=== PATIENT | male | born 1975 | race Caucasian/White ===

== ENCOUNTER 2019-12-20 23:05 | Inpatient (IN) | payer SELFPAY ==
[~2019-12-20] VITALS: Ht 177.8 cm; Wt 105.0 kg
[~2019-12-20 23:05] MED LIST: IV NORMAL SALINE 1,000ML 1,000 ML IV ONE
[2019-12-20] MEDS ORDERED: ONDANSETRON PF 4 MG/2 ML VIAL. IVP ONE (23:30)
--- NOTE | 2019-12-20 23:35 | PHYS DOC ---
Past History Past Medical History: Asthma Past Medical History thyroid Past Surgical History thyroid Smoking: Non-smoker Alcohol Use: None Drug Use: Marijuana General Adult EDM: Chief Complaint: short of air, nausea, vomiting, diarrhea HPI: HPI: Patient is a 44 year old male who presents for evaluation of shortness of air that has been off and on since a week ago . Patient arrived via EMS. earlier this evening he started having recurrent episodes of vomiting and diarrhea. Patient started having shaking chills as well. EMS was called to the house and his initial blood pressure was 80/palp but significantly improved shortly after arrival to 140 systolic. Patient was in moderate distress. States he was also having some vision changes. Risk factors for COVID included shortness of air as well as exposure to his spouse who works at [employer] [facility] [employer]. Many employees and prisoners are sick at that facility. [] Review of Systems: Review of Systems: Constitutional: Denies fever has chills Eyes: Has change in visual acuity HENT: Denies nasal congestion or sore throat Respiratory: Denies cough but has shortness of breath Cardiovascular: Denies chest pain or edema GI: diffuse abdominal cramping, has nausea, vomiting, no bloody stools but does have diarrhea : Denies dysuria Musculoskeletal: DIffuse body aches Integument: Denies rash Neurologic: Denies headache, focal weakness or sensory changes Endocrine: Denies polyuria or polydipsia Lymphatic: Denies swollen glands Psychiatric: Denies depression or anxiety Heart Score: Risk Factors: Risk Factors: DM, Current or recent (<one month) smoker, HTN, HLP, family history of CAD, obesity. Risk Scores: Score 0 - 3: 2.5% MACE over next 6 weeks - Discharge Home Score 4 - 6: 20.3% MACE over next 6 weeks - Admit for Clinical Observation Score 7 - 10: 72.7% MACE over next 6 weeks - Early Invasive Strategies Current Medications: Current Meds: Current Medications Medications (Trade) Dose Ordered Sig/Wilfrido Start Time Stop Time Status Last Admin Dose Admin Ondansetron HCl (Zofran) 4 mg 1X ONCE 12/20/19 23:30 12/20/19 23:31 Sodium Chloride 1,000 ml @ 1,000 mls/hr 1X ONCE 12/20/19 23:00 12/20/19 23:59 Allergies: Allergies: Allergies Coded Allergies Type Severity Reaction Last Updated Verified Unable to Assess 12/20/19 No Physical Exam: PE: Constitutional: Well developed, well nourished, moderate distress, somewhat toxic appearance. [] HENT: Normocephalic, atraumatic, bilateral external ears normal, oropharynx moist, no oral exudates, nose normal. [] Eyes: PERRL, EOMI, conjunctiva normal, no discharge. [] Neck: Normal range of motion, no tenderness, supple, no stridor. [] Cardiovascular:Heart rate regular rhythm, no murmur [] Lungs & Thorax: Bilateral breath sounds slightly diminished, wheezing present [] Abdomen: Diffuse mild tenderness, no masses, soft. [] Skin: Warm, dry, no erythema, no rash. [] Back: No tenderness, no CVA tenderness. [] Extremities: No tenderness, no cyanosis, no clubbing, ROM intact, no edema. [] Neurologic: Alert and oriented X 3, normal motor function, normal sensory function, no focal deficits noted. [] Psychologic: anxious affect, judgement normal. [] Current Patient Data: Vital Signs: Leukocytosis present, remainder of CBC and chemistries unremarkable. Troponin negative and lactic acid 1.6 EKG: EKG: EKG read at 2359. Normal sinus rhythm, rate 75, normal axis, flattened T waves lead III otherwise essentially normal EKG, not STEMI [] Radiology/Procedures: Radiology/Procedures: [] Course & Med Decision Making: Course & Med Decision Making Pertinent Labs and Imaging studies reviewed. (See chart for details) 5 patient now reports he is having some right-sided chest discomfort. EKG added as well as troponin 0128 Dr. Perera is the accepting physician. Patient was admitted to the [facility] rule out unit. In the meantime he received IV fluid replacement. Supportive care recommended. Patient agreed to the admission. CT scan abdomen pelvis failed to show evidence of pneumonia or obvious reason for the diarrhea. Patient still has occasional shaking chills. [] Dragon Disclaimer: Dragon Disclaimer: This electronic medical record was generated, in whole or in part, using a voice recognition dictation system. Departure Departure: Impression: Primary Impression: Dyspnea Qualified Codes: R06.03 - Acute respiratory distress Additional Impressions: Diarrhea Qualified Codes: R19.7 - Diarrhea, unspecified Chest pain Qualified Codes: R07.89 - Other chest pain Hypotension Qualified Codes: I95.9 - Hypotension, unspecified Disposition: 09 ADMITTED INPATIENT Admitting Physician: Kalin Perera Condition: STABLE COVID-19 Patient Risks: Age 65 or older: No Sign of co-morbidity: Yes (asthma) Exp to person + for COVID: Yes Exp to PUI: No Lower respiratory symptoms: Yes Fever: No Other: Yes (Spouse works at [employer] with a known significant outbreak) PPE Use: Full PPE with N95 mask or PAPR: Yes (N 95 mask, face shield, gown, gloves, repeated handwashing) YAZMIN GAGNON DO Dec 20, 2019 23:35
[2019-12-20 23:58] LABS: CALCIUM 9.1 mg/dL (8.5-10.1); CREATININE 1.4 mg/dL (0.7-1.3); GFR 55.1; POTASSIUM 4.1 mmol/L (3.5-5.1)
[2019-12-21] LABS: BASO # 0.2 x10^3/uL (0.0-0.2); BASO % 1 % (0-3); EOS # 0.3 x10^3/uL (0.0-0.7); EOS % 2 % (0-3); HEMATOCRIT 47.3 % (39.0-53.0); HEMOGLOBIN 15.6 g/dL (13.0-17.5); LYMPH # 1.1 x10^3/uL (1.0-4.8); LYMPH % 7 % (24-48); MEAN CORPUSCULAR HEMOGLOBIN 28 pg (25-35); MEAN CORPUSCULAR HGB CONC 33 g/dL (31-37); MEAN CORPUSCULAR VOLUME 86 fL (79-100); MONO # 0.9 x10^3/uL (0.0-1.1); MONO % 5 % (0-9); NEUT # 13.5 x10^3uL (1.8-7.7); NEUT % 84 % (31-73); PLATELET COUNT 308 x10^3/uL (140-400); RED BLOOD COUNT 5.51 x10^6/uL (4.30-5.70)
[2019-12-21 00:04] LABS: ALBUMIN 3.9 g/dL (3.4-5.0); ALBUMIN/GLOBULIN RATIO 1.1 (1.0-1.7); TOTAL BILIRUBIN 0.4 mg/dL (0.2-1.0); TOTAL PROTEIN 7.3 g/dL (6.4-8.2)
[2019-12-21] MEDS ORDERED: IV NORMAL SALINE 1,000ML 1,000 ML IV ONE (00:15)
[2019-12-21 00:52] LABS: % BANDS 12 % (0-9); % EOS 4 % (0-5); % LYMPHS 14 % (24-48); % MONOS 5 % (0-10); % SEGS 65 % (35-66); PLT ESTIMATE ADEQUATE (ADEQUATE)
[2019-12-21 00:54] LABS: BACTERIA,URINE 0 /HPF (0-FEW); BILIRUBIN,URINE NEG (NEG); CLARITY,URINE CLEAR; COLOR,URINE YELLOW; GLUCOSE,URINE NEG (NEG); NITRITE,URINE NEG (NEG); RBC,URINE 0 /HPF (0-2); SQUAMOUS EPITHELIAL CELL,UR OCC /LPF; UROBILINOGEN,URINE 0.2 mg/dL (0.2 mg/dL); WBC,URINE RARE /HPF (0-4)
--- NOTE | 2019-12-21 01:13 | RAD ---
Study: CT chest, abdomen and pelvis without contrast INDICATION: Right-sided chest pain. Nausea, vomiting and diarrhea. Leukocytosis. COMPARISON: None available. TECHNIQUE: Helical CT imaging performed of the chest, abdomen and pelvis performed without the use of intravenous contrast. Coronal and sagittal reformats were obtained. One or more of the following individualized dose reduction techniques were utilized for this examination: 1. Automated exposure control 2. Adjustment of the mA and/or kV according to patient size 3. Use of iterative reconstruction technique. FINDINGS: CT Chest: Normal aortic caliber. Unremarkable main pulmonary artery. Heart size is within normal limits. No pericardial effusion. No pathologically enlarged mediastinal or hilar lymph nodes. Two adjacent millimetric pulmonary nodules at the right upper lobe, images 30 and 33 series 2. Millimetric nodule at the right lung base, image 86 series 2. Scattered tiny pleural-based nodules on the right. Scattered millimetric pleural-based and perifissural nodules on the left such as seen on image 50 series 2. Small left lower lobe nodule on image 53 series 2. No localized airspace infiltrate or consolidation. No pleural effusion or pneumothorax. Asymmetric gynecomastia greater on the right. No axillary adenopathy. No acute osseous abnormality. CT Abdomen/Pelvis: Inherently limited evaluation of the abdominopelvic organs without contrast. Small focus of low attenuation at the upper aspect of the liver on image 81 series 2 is incompletely characterized but most likely represents a cyst or hemangioma in the absence of a known malignancy. No follow-up imaging is needed per consensus recommendation based on imaging criteria. The gallbladder wall appears faintly prominent but is measured right around 3 mm. No apparent pericholecystic inflammation. Faint haziness along the undersurface of the uncinate process along the mesenteric vascular pedicle favored unlikely of any significance and similar to faint haziness at a few additional locations. Upper limits of normal size of the spleen measuring right at 13 cm craniocaudal. Normal adrenal gland morphology. Bilateral intrarenal stones greater in number on the left. No stone is seen within either ureter or within the urinary bladder. The bladder is unremarkable. Mild enlargement of the prostate. Incompletely formed stool scattered throughout the colon in keeping with a diarrheal state. No pericolonic inflammation or significant wall thickening. The appendix is unremarkable. Mild fluid distention of scattered small bowel loops but without pathologic dilatation or transitioning to decompression to suggest obstruction. The stomach is unremarkable. Nonaneurysmal aorta. Minimal calcific atherosclerosis. No pathologically enlarged lymph nodes. No free fluid or air. Unremarkable body wall soft tissues. No acute or aggressive osseous process. IMPRESSION: CT Chest: 1. No findings of an atypical or typical infectious process throughout the lungs. 2. A few millimetric pulmonary nodules scattered throughout both lungs none of which meet size criteria for dedicated follow-up. Per Fleischner guidelines if there are risk factors for lung malignancy optional CT in 12 months could be performed. CT Abdomen/Pelvis: 1. Fluid scattered throughout much of the colon in keeping with a diarrheal state. No bowel obstruction. No findings of an overt colitis or enteritis. 2. Mild wall thickening of the gallbladder but without overt CT findings to suggest cholecystitis. If there are symptoms referrable to this region targeted ultrasound could be beneficial. 3. Bilateral nonobstructing intrarenal stones greater in number on the left. No ureteral or urinary bladder stone and there is no collecting system dilatation. 4. Slight haziness of the fat inferior to the uncinate process felt unlikely related to mild pancreatitis but consider correlation with lipase levels. Electronically signed by: KEY MCKEON MD (12/21/2019 1:10 AM) [id number]
[2019-12-21] MEDS ORDERED: ONDANSETRON PF 4 MG/2 ML VIAL. IVP PRN (01:45)
[2019-12-21] MEDS ORDERED: ACETAMINOPHEN 325 MG TABLET PO PRN (01:45)
[2019-12-21] MEDS ORDERED: ONDANSETRON PF 4 MG/2 ML VIAL. IVP ONE (02:30)
[2019-12-21 03:00] VITALS: BP_SYST 138; BP_SYST 139; BP_DIAS 86; BP_DIAS 93
[2019-12-21] MEDS ORDERED: IV NORMAL SALINE 1,000ML 1,000 ML IV SCH (03:00)
--- NOTE | 2019-12-21 03:00 | NUR ---
Admission: The patient, DEE MENDEZ, 44 y/o, M admitted by TOM ROMO MD, was given written information regarding hospital policies, unit procedures and contact persons. Pt arrived to COVID rule out unit, room 122, via gurney accompanied by EMS and nursing sup. Pt here for c/o SOA x1 week and sudden onset of N/V/D last night. Pt denies fever or cough. Pt resides with a friend who works at [facility], which currently has a significant number of COVID cases. Pt swabbed in the ED, results pending. VSS, afebrile. Pt sating upper 90's on RA. Telemetry applied, showing SR with rate in the 70's. Pt reports sharp, intermittent right upper rib pain, worse with deep breaths. Rates 3/10. Initial troponin negative, serials ordered. Discussed POC with pt, V/U. Call light in reach. Valuables were checked and logged. Left in room with patient.
[2019-12-21] MEDS ORDERED: LEVO200T PO (03:06)
[2019-12-21] MEDS ORDERED: ALBU2.5V8 IH (03:15)
--- NOTE | 2019-12-21 04:01 | RAD ---
Study: CR CHEST AP ONLY Indication: Shortness of air. Right-sided chest pain. Comparison: Same day CT. Findings: No airspace opacity. No layering effusion or pneumothorax. Unremarkable cardiomediastinal silhouette and javier given low lung volumes and AP technique. Findings suggestive of prior surgery at the distal right clavicle/AC joint. Impression: No acute radiographic abnormality of the chest. Electronically signed by: KEY MCKEON MD (12/21/2019 3:58 AM) [id number]
--- NOTE | 2019-12-21 05:34 | EKG ---
[address] [address] Test Date: 2019-12-20 Test Time: 23:53:43 Pat Name: DEE MENDEZ Department: Room: 122 A Gender: M [employer] Instrument Repairer: : 1975 Requested By: YAZMIN GAGNON Order Number: [id number] Reading MD: Wilmer Villafana MD Measurements Intervals [place] Rate: 75 P: 37 IN: 182 QRS: 46 QRSD: 96 T: 21 QT: 396 QTc: 445 Interpretive Statements SINUS RHYTHM NON-SPECIFIC ST/T CHANGES Electronically Signed On 12-21-2019 8:37:14 CDT by Wilmer Villafana MD
[2019-12-21 05:38] VITALS: BP 111/80
[2019-12-21] MEDS ORDERED: DIPHENOXYLATE/ATROPINE TABLET. PO PRN (09:15)
--- NOTE | 2019-12-21 10:19 | HP ---
ADMIT DATE: 12/21/2019 ATTENDING PHYSICIAN: Dr. Romo CHIEF COMPLAINT: Abdominal pain and diarrhea. HISTORY OF PRESENT ILLNESS: The patient is a 44-year-old gentleman admitted through the ED with symptoms of diarrhea and gastroenteritis. He had some shaking chills and rigors. He has had some subjective shortness of breath despite a normal chest x-ray. He is a nonsmoker. He was quite dry. Initial blood pressure was 80/palpable. He was given a couple of liters of fluids. Because of his symptoms and his worry, he lives with his significant other who has been exposed to COVID-19 coronavirus, he was swabbed and that is still pending. He was admitted for further hydration and treatment of dehydration. I suspect he has a self-limiting gastroenteritis. PAST MEDICAL HISTORY: Significant for hypothyroidism due to Graves' disease and essential hypertension. ALLERGIES: He has no known drug allergies. SOCIAL HISTORY: He is a nonsmoker, nondrinker. 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 CURRENT MEDICINES: Synthroid and albuterol. FAMILY HISTORY: Father has a longstanding endocrine tumor of the pancreas. Mom is healthy. They are both in their late 60s. REVIEW OF SYSTEMS: Significant for the localized symptoms for less than a day, some chills, rigors, loose stools. No vomiting. There is a strong anxiety component. All other systems reviewed, were determined to be negative. PHYSICAL EXAMINATION: GENERAL: When I saw him, this is a healthy young man. INITIAL VITAL SIGNS: Showed a blood pressure today of 111/80, pulse 62 and regular. He was afebrile. Room air saturation 98%. HEENT: Head is without trauma. Pupils are reactive. Sclerae nonicteric. Oropharynx is clear. NECK: Supple, no bruits identified. LUNGS: Clear. CARDIOVASCULAR: Showed regular heart tones. No gallops. ABDOMEN: Soft, obese, protuberant, normoactive. No guarding or rebound tenderness. Bowel sounds are normoactive. EXTREMITIES: Showed no cyanosis or edema. NEUROLOGIC: Focally intact. PERTINENT LABORATORY DATA: Chemistry panel is unremarkable. Creatinine 1.4 mg/dL. Hemoglobin 15.6 grams with white count of 16,000. CT of the abdomen shows nonspecific changes without any obstruction or lesions. ASSESSMENT: A 44-year-old gentleman with: 1. Self-limiting viral gastroenteritis. 2. Diarrhea. 3. Dehydration, symptomatic. 4. Hypothyroidism due to Graves' disease. PLAN: 1. Admit to the inpatient unit. 2. IV hydration. 3. Advance diet as tolerated. 4. Lomotil p.r.n. 5. He requested a COVID-19 coronavirus swab. I suspect this will be negative. TOM ROMO MD DR: BETO/swathi JOB#: [id number] / [id number]
[2019-12-21 11:00] VITALS: BP 122/76
--- NOTE | 2019-12-21 11:24 | DS ---
DATE OF DISCHARGE: 12/21/2019 ATTENDING PHYSICIAN: Dr. Romo. FINAL DISCHARGE DIAGNOSES: 1. Dehydration. 2. Self-limiting gastroenteritis. 3. Hypothyroidism, on replacement. 4. History of Graves' disease. 5. Nausea, improved. HISTORY OF PRESENT ILLNESS: The patient is a 44-year-old gentleman with a 1-day history of nausea, vomiting, diarrhea and dehydration. Blood pressure initially was 80s, palpable. He was treated in the ED with IV hydration. His live-in significant other is a guard at the [employer]. She has not had coronavirus, but may have been exposed. He was also swabbed. He had no pulmonary symptoms. PHYSICAL EXAMINATION: Please see the dictated note. PERTINENT LABORATORY AND X-RAY STUDIES: His CT of the abdomen and pelvis showed no obstruction, some diarrheal pattern. Chest x-ray was entirely clear without any acute infiltrates. The hemoglobin is maintained at 15.6 g/dL with a white count of 16,000. Chemistry panel, cardiac enzymes were negative for myocardial necrosis. Lipase is normal. Electrolytes, BUN and creatinine within normal range. Creatinine was 1.4 mg/dL. COURSE IN THE HOSPITAL: The patient was admitted with dehydration and gastroenteritis. Diet was initially liquids, advanced to solid foods. He did well. Blood pressure was stable and improved. He had a COVID-19 coronavirus swab pending. He has no pulmonary symptoms. We will notify him of the results of the test when available. By the next hospital day, blood pressure was improved up to 111/80, pulse is 62 and regular. He was afebrile, oxygen saturation adequate on room air. He was ready for discharge. At this time, he is instructed to follow up with his PCP. No restrictions on diet. I gave him a script for Compazine 10 mg 1 every 6 hours p.r.n. pain #12 and again continuation of his Synthroid and albuterol inhalers. The patient was then discharged from our hospital in a stable condition with explicit instructions on followup care. TOM ROMO MD DR: BETO/swathi JOB#: [id number] / [id number]
--- NOTE | 2019-12-21 14:20 | NUR ---
Patient was discharged home today. Discharge paperwork was reviewed with patient and he verbalized understanding of discharge instructions. Patient left the unit with all of his belongings including an inhaler he brought from home. Patient left the unit via ambulation accompanied by family day carer member transported patient home.
== END 2019-12-21 13:55 | disposition home or self-care (01) | DRG 392 ==
LOC: ER 23:05 → 1 SOUTH 12-21 01:30 → OBSVTOIN 12-21 08:29
PROVIDERS: ADMIT Hospitalist; ATTEND Hospitalist
DX: A08.4 Viral intestinal infection, unspecified (principal); E03.9 Hypothyroidism, unspecified; E05.00 Thyrotoxicosis with diffuse goiter without thyrotoxic crisis or storm; E86.0 Dehydration; I10 Essential (primary) hypertension; J45.909 Unspecified asthma, uncomplicated; F12.90 Cannabis use, unspecified, uncomplicated; Z03.818 Encounter for observation for suspected exposure to other biological agents ruled out
CPT/HCPCS: 36415; 71045; 71250; 74176; 80053; 81001; 83605; 83690; 84484; 85007; 85025; 87040; 87635; 93005; 96361; 96374; 96376; G0378; G0379; J2405; 99285-25; J7030